=== PATIENT | female | born 2000 | race Caucasian/White ===

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

== ENCOUNTER 2020-05-15 15:34 | Emergency (ER) | payer OTHER ==
[~2020-05-15 15:34] MED LIST: BIRTH CONTROL; CIPRO500 MG PO; IBUPROFEN800 MG PO; MYLICON80 MG PO; PEPCID AC20 MG PO; PRENATAL FORMU1 EACH PO; PYRIDIUM200 MG PO
[2020-05-15 16:31] LABS: BILIRUBIN NEGATIVE (NEGATIVE); BLOOD TRACE-INTACT Ery/uL (NEGATIVE); CLARITY HAZY (CLEAR); COLOR YELLOW (YELLOW); GLUCOSE (U) NORMAL (NORMAL); LEUKOCYTES 3+ Leu/uL (NEGATIVE); NITRITE POSITIVE (NEGATIVE); PROTEIN 1+ mg/dL (NEGATIVE); SPECIFIC GRAVITY 1.025 (1.001-1.030); UROBILINOGEN 0.2 mg/dL (0.2-1.0)
[2020-05-15 16:41] LABS: BACTERIA 4+; URINARY RBC RARE; URINARY WBC 20-50
[2020-05-15 16:47] LABS: BASOPHIL 0.3 % (0-2); EOSINOPHIL 0.3 % (0-5); HCT 33.8 % (37.0-47.0); HGB 12.2 g/dl (12.5-16.0); LYMPHOCYTE 9.5 % (15-48); MCH 31.7 pg (25.0-31.0); MCHC 36.1 g/dL (32.0-36.0); MCV 87.8 fL (78.0-100.0); MONOCYTE 4.1 % (0-12); MPV 9.6 fL (6.0-9.5); NEUTROPHIL 85.5 % (41-80); NRBC 0; PLT 217 K/uL (150-400); RBC 3.85 M/uL (4.20-5.40); RDW 13.3 % (11.5-14.0); WBC 12.1 K/uL (4.0-10.5)
[2020-05-15 17:24] LABS: ALBUMIN 3.2 g/dL (3.4-5.0); BILIRUBIN - TOTAL 0.4 mg/dL (0.2-1.0); BUN/CREAT RATIO (CALC) 7.4 RATIO; CREATININE 0.68 mg/dL (0.51-0.95); GLOBULIN (CALCULATION) 3.5 g/dL; POTASSIUM 3.9 mmol/L (3.5-5.1); TOTAL PROTEIN 6.7 g/dL (6.4-8.2)
[2020-05-15] MEDS ORDERED: KEFLEX250 MG PO (17:49)
== END 2020-05-15 18:59 | disposition home or self-care (01) ==
LOC: FER 15:34
PROVIDERS: Emergency Medicine
DX: O23.41 Unspecified infection of urinary tract in pregnancy, first trimester (principal); Z87.19 Personal history of other diseases of the digestive system; Z90.49 Acquired absence of other specified parts of digestive tract; Z3A.13 13 weeks gestation of pregnancy
CPT/HCPCS: 36415; 80053; 81001; 83690; 84702; 85025; 87076; 87088; 87186; 96372; J0696

== ENCOUNTER 2021-06-04 21:27 | Emergency (ER) | payer OTHER ==
[~2021-06-04 21:27] MED LIST changes: +KEFLEX250 MG PO
[2021-06-04 23:02] LABS: BASOPHIL 0.5 % (0-2); EOSINOPHIL 3.2 % (0-5); HCT 37.4 % (37.0-47.0); HGB 12.2 g/dl (12.5-16.0); LYMPHOCYTE 30.8 % (15-48); MCH 28.1 pg (25.0-31.0); MCHC 32.6 g/dL (32.0-36.0); MCV 86.2 fL (78.0-100.0); MONOCYTE 6.8 % (0-12); MPV 10.2 fL (6.0-9.5); NEUTROPHIL 58.5 % (41-80); NRBC 0; PLT 274 K/uL (150-400); RBC 4.34 M/uL (4.20-5.40); RDW 14.4 % (11.5-14.0); WBC 6.6 K/uL (4.0-10.5)
[2021-06-04 23:24] LABS: BILIRUBIN NEGATIVE (NEGATIVE); BLOOD NEGATIVE Ery/uL (NEGATIVE); CLARITY CLEAR (CLEAR); COLOR YELLOW (YELLOW); GLUCOSE (U) NORMAL (NORMAL); LEUKOCYTES NEGATIVE Leu/uL (NEGATIVE); NITRITE NEGATIVE (NEGATIVE); PROTEIN NEGATIVE (NEGATIVE); pH 6.5 (5.0-9.0)
[2021-06-04 23:25] LABS: ALBUMIN 3.5 g/dL (3.4-5.0); BILIRUBIN - TOTAL 0.3 mg/dL (0.2-1.0); BUN/CREAT RATIO (CALC) 9.2 RATIO; CREATININE 0.87 mg/dL (0.51-0.95); GLOBULIN (CALCULATION) 3.7 g/dL; POTASSIUM 3.2 mmol/L (3.5-5.1); TOTAL PROTEIN 7.2 g/dL (6.4-8.2)
[2021-06-05] MEDS ORDERED: ONDANSETRON ODT4 MG PO (00:23)
== END 2021-06-05 00:28 | disposition home or self-care (01) ==
LOC: FER 21:27
PROVIDERS: Emergency Medicine
DX: R10.9 Unspecified abdominal pain (principal); R11.0 Nausea; Z28.310 Unvaccinated for COVID-19
CPT/HCPCS: 36415; 80053; 81003; 83690; 85025; J2405; J7030

== ENCOUNTER 2021-09-23 02:36 | Emergency (ER) | payer OTHER ==
[~2021-09-23 02:36] MED LIST changes: +ONDANSETRON ODT4 MG PO
[2021-09-23] MEDS ORDERED: RIZATRIPTAN10 M1 SL (04:40)
[2021-09-23] MEDS ORDERED: REGLAN10 MG PO (04:40)
[2021-09-23] MEDS ORDERED: IBUPROFEN800 MG PO (04:40)
== END 2021-09-23 05:01 | disposition home or self-care (01) ==
LOC: FER 02:36
DX: G43.909 Migraine, unspecified, not intractable, without status migrainosus (principal); F17.290 Nicotine dependence, other tobacco product, uncomplicated
CPT/HCPCS: J1885; J2765; J3030; J3475